=== PATIENT | female | born 1950 | race Caucasian/White ===

== ENCOUNTER 2022-06-03 05:51 | Emergency (ER) | payer MEDICARE, BC ==
[~2022-06-03] VITALS: Ht 160 cm; Wt 61.2 kg
[2022-06-03] MEDS ORDERED: EPINEPHRINE PF 1MG (1:1,000) 1 MG/ML AMP ONE (06:09)
[2022-06-03] MEDS ORDERED: FAMOTIDINE 20MG VIAL IV ONE (06:30)
[2022-06-03] MEDS ORDERED: EPINEPHRINE PF 1MG (1:1,000) 1 MG/ML AMP IM ONE (06:30)
[2022-06-03] MEDS ORDERED: SOLU-MEDROL 125MG VIAL IVP ONE (06:30)
[2022-06-03] MEDS ORDERED: DiphenhydrAMINE HCL 50 MG/ML VIAL IV ONE (06:30)
[2022-06-03] MEDS ORDERED: DIPH50 PO (07:08)
[2022-06-03] MEDS ORDERED: PRED20TA3 PO (07:08)
[2022-06-03] MEDS ORDERED: FAMO-136 PO (07:08)
[2022-06-03 07:25] VITALS: BP 119/64
== END 2022-06-03 07:37 | disposition home or self-care (01) ==
LOC: EDH 05:51
DX: T78.3XXA Angioneurotic edema, initial encounter (principal); T45.0X5A Adverse effect of antiallergic and antiemetic drugs, initial encounter; Z79.52 Long term (current) use of systemic steroids; Z88.2 Allergy status to sulfonamides; Y92.89 Other specified places as the place of occurrence of the external cause
CPT/HCPCS: 99284; 96374; 96375; 96372; J1200; J3490; J2930; J0171